=== PATIENT | female | born 1950 | race Caucasian/White ===

== ENCOUNTER → 2017-06-28 | Outpatient (CLI) | payer OTHER ==
[~2017-06-28] MED LIST: ASPI-612 PO; CANA300T PO; CITA20TA9 PO; EMPA10TA PO; GLIP10TA13 PO; METF-620 PO; MULT-245 PO; OMEG10005 PO; SIMV20TA3 PO; SITA100T PO; VALS160T3 PO
--- NOTE | 2017-06-28 12:11 | RAD ---
DATE: June 28, 2017 EXAM: DIGITAL DIAGNOSTIC BILATERAL HISTORY: History of right breast cancer treated with lumpectomy in 2012 COMPARISON: 2012 through 2015 This study was interpreted with the benefit of Computerized Aided Detection (CAD). FINDINGS: The breast parenchyma is scattered and mildly dense. Postoperative changes of the right breast are stable. There is a small intramammary lymph node within the upper posterior aspect of the left breast which is stable. There are no new dominant suspicious masses, suspicious microcalcifications or evidence of architectural distortion. IMPRESSION: No mammographic indicators for new or recurrent malignancy. BI-RADS Category 2 benign finding. RECOMMENDED FOLLOW-UP: 12M 12 MONTH FOLLOW-UP PQRS compliance statement: Patient information was entered into a reminder system with a target due date June 29, 2018 for the next mammogram. Mammography is a sensitive method for finding small breast cancers, but it does not detect them all and is not a substitute for careful clinical examination. A negative mammogram does not negate a clinically suspicious finding and should not result in delay in biopsying a clinically suspicious abnormality. "Our facility is accredited by the [employer] Mammography [employer]." The patient's breast density may affect the ability of mammography to detect breast cancer. There are 4 categories of breast density, A, B, C and D. Breast density A means that most of the breast tissue is replaced with adipose tissue and therefore is not dense. Breast density B means that the breast tissue is mildly dense and scattered. Breast density C means that the breast tissue is heterogeneously dense. Breast density D means that the breast tissue is very dense. Breast densities especially C and D may decrease the sensitivity of mammography to detect breast cancer. Therefore, the patient may benefit from 3-D breast mammography (3D breast tomography) as a part of their screening mammogram. Insurance may or may not pay for this additional imaging. The patient's breast density based on today's mammogram is category B.
== END | disposition home or self-care (01) ==
LOC: MAMMO 10:43
PROVIDERS: ATTEND Surgery
DX: R92.8 Other abnormal and inconclusive findings on diagnostic imaging of breast (principal); Z85.3 Personal history of malignant neoplasm of breast
CPT/HCPCS: G0204; 77066

== ENCOUNTER 2017-08-19 21:03 | Inpatient (IN) | payer OTHER ==
[2017-08-19 21:17] LABS: ADD MAN DIFF? NO
[2017-08-19 21:20] LABS: BASO % 1 % (0-3); EOS # 0.1 x10^3/uL (0.0-0.7); EOS % 2 % (0-3); HEMATOCRIT 40.7 % (36.0-47.0); HEMOGLOBIN 13.5 g/dL (12.0-15.5); LYMPH # 2.3 x10^3/uL (1.0-4.8); LYMPH % 33 % (24-48); MEAN CORPUSCULAR HEMOGLOBIN 31 pg (25-35); MEAN CORPUSCULAR HGB CONC 33 g/dL (31-37); MEAN CORPUSCULAR VOLUME 92 fL (79-100); MONO # 0.6 x10^3/uL (0.0-1.1); MONO % 9 % (0-9); NEUT # 3.9 x10^3uL (1.8-7.7); NEUT % 56 % (31-73); PLATELET COUNT 211 x10^3/uL (140-400); RED BLOOD COUNT 4.41 x10^6/uL (3.50-5.40); RED CELL DISTRIBUTION WIDTH 14.3 % (11.5-14.5); WHITE BLOOD COUNT 6.9 x10^3/uL (4.0-11.0)
[2017-08-19 21:31] LABS: ANION GAP 11 (6-14); BLOOD UREA NITROGEN 16 mg/dL (7-20); BUN/CREATININE RATIO 23 (6-20); CALCIUM 9.2 mg/dL (8.5-10.1); CARBON DIOXIDE 27 mmol/L (21-32); CHLORIDE 103 mmol/L (98-107); CREATININE 0.7 mg/dL (0.6-1.0); GFR 83.2; GLUCOSE 239 mg/dL (70-99); SODIUM 141 mmol/L (136-145)
[2017-08-19 21:35] LABS: ALBUMIN 3.7 g/dL (3.4-5.0); ALBUMIN/GLOBULIN RATIO 0.9 (1.0-1.7); ALK PHOS 60 U/L (46-116); ALT (SGPT) 17 U/L (14-59); AST (SGOT) 12 U/L (15-37); TOTAL BILIRUBIN 0.3 mg/dL (0.2-1.0); TOTAL PROTEIN 7.8 g/dL (6.4-8.2)
[2017-08-19 21:36] LABS: TROPONINI < 0.017 ng/mL (0.000-0.055)
[2017-08-19] MEDS: ASPIRIN CHEWABLE 81 MG TABLET. PO ×2 (22:04)
[2017-08-19] MEDS: NITROGLYCERIN SUBLINGUAL 0.4 MG BOTTLE OF 25. SL ×2 (22:05)
[2017-08-19 23:23] LABS: D-DIMER 0.41 ug/mlFEU (0.00-0.50)
[2017-08-20] MEDS: LIDO:MAALOX:DONNATAL 1:1:1 15 ML SINGLE DOSE SWSW ×2 (00:04)
[2017-08-20] MEDS ORDERED: PNEUMOCOCCAL VAX SCREEN BY RX. MC ×2 (02:30)
[2017-08-20] MEDS ORDERED: ONDANSETRON PF 4 MG/2 ML VIAL. IV ×4 (02:30→07:45)
[2017-08-20 06:20] LABS: TROPONINI < 0.017 ng/mL (0.000-0.055)
[2017-08-20] MEDS ORDERED: ACETAMINOPHEN 500 MG TABLET PO ×2 (07:45)
[2017-08-20] MEDS ORDERED: DEXTROSE 50% 25 GM / 50ML DISP.SYRIN. IV ×2 (07:45)
[2017-08-20] MEDS: INSULIN ASPART 300 UNITS/3 ML INSULN.PEN SQ ×4 (08:00→12:00)
[2017-08-20] MEDS: NON FORMULARY ITEM (Empagliflozin (Jardiance) 10 MG) PO ×2 (08:31)
[2017-08-20] MEDS: glipiZIDE 5 MG TABLET PO ×2 (08:32)
[2017-08-20] MEDS: ASPIRIN ENTERIC COATED 81 MG TABLET.DR. PO ×2 (08:32)
[2017-08-20] MEDS: OMEGA-3 FATTY ACIDS/FISH OIL 1,000 MG CAPSULE. PO ×2 (08:33)
[2017-08-20] MEDS: CITALOPRAM 20 MG TABLET. PO ×2 (08:33)
[2017-08-20] MEDS: MULTIVITAMIN with MINERAL TABLET. PO ×2 (08:33)
[2017-08-20] MEDS: LINAGLIPTIN 5 MG TABLET PO ×2 (08:36)
[2017-08-20] MEDS: LOSARTAN POTASSIUM 50 MG TABLET. PO ×2 (08:36)
[2017-08-20 08:51] LABS: CHOLESTEROL 137 mg/dL (0-200); HDLC 69 mg/dL (40-60); LDLC 56 mg/dL (0-100); NON-HDL CHOLESTEROL 68 mg/dL (0-129); TRIGLYCERIDES 59 mg/dL (0-150); VLDLC 12 mg/dL (0-40)
[2017-08-20 08:53] LABS: TROPONINI 0.024 ng/mL (0.000-0.055)
[2017-08-20] MEDS: PNEUMOC CONJ VACC 23-VALENT 0.5 ML VIAL. VAX IM ×2 (11:12)
[2017-08-20 11:37] LABS: POC GLUCOSE 86 mg/dL (70-99)
[2017-08-20] MEDS: REGADENOSON 0.4 MG/5 ML DISP.SYRIN. IV ×2 (12:03)
[2017-08-20] MEDS ORDERED: SIMVASTATIN 20 MG TABLET PO ×2 (21:00)
[2017-08-21 06:55] LABS: POC GLUCOSE 125 mg/dL (70-99)
== END 2017-08-20 15:41 | disposition home or self-care (01) | DRG 313 ==
LOC: 5 SOUTH 08-20 00:30 → ER 21:03 → 5 SOUTH 08-20 02:00
DX: R07.89 Other chest pain (principal); E11.9 Type 2 diabetes mellitus without complications; I10 Essential (primary) hypertension; E78.00 Pure hypercholesterolemia, unspecified; F32.9 Major depressive disorder, single episode, unspecified; E78.5 Hyperlipidemia, unspecified; R42 Dizziness and giddiness; H93.11 Tinnitus, right ear; M19.90 Unspecified osteoarthritis, unspecified site; Z82.49 Family history of ischemic heart disease and other diseases of the circulatory system; Z83.3 Family history of diabetes mellitus; Z85.3 Personal history of malignant neoplasm of breast; Z87.442 Personal history of urinary calculi; Z88.0 Allergy status to penicillin; Z92.3 Personal history of irradiation
CPT/HCPCS: 36415; 71045; 78452; 80053; 80061; 82962; 84484; 85025; 85379; 90732; 93005; 93017; 96374; 96375; 96376; 99285-25; A9500; J1815; J2785

== ENCOUNTER → 2018-08-03 | Outpatient (CLI) | payer OTHER, MEDICARE ==
[2017-08-20 15:00] VITALS: BP 112/67
[~2018-08-03] MED LIST changes: -METF-620 PO; +METF10007 PO
--- NOTE | 2018-08-03 12:34 | RAD ---
DATE: 08/03/2018 EXAM: MAMMO TORSTEN SCREENING BILATERAL HISTORY: Screening Mammogram COMPARISON: Mammogram 06/28/2017, 06/25/2016 This study was interpreted with the benefit of Computerized Aided Detection (CAD). The breast parenchyma shows scattered fibroglandular densities. Breast parenchyma level B. FINDINGS: Bilateral digital 2-D and 3-D tomosynthesis CC and MLO views. Stable architectural distortion and skin retraction in the upper outer right breast consistent with post therapeutic changes. No suspicious mass, calcification or new architectural distortion. No significant change from prior examination. IMPRESSION: 1. Stable post therapeutic changes in the right breast. 2. No mammographic evidence of malignancy. BI-RADS CATEGORY: 2 BENIGN FINDING(S) RECOMMENDED FOLLOW-UP: 12M 12 MONTH FOLLOW-UP PQRS compliance statement: Patient information was entered into a reminder system with a target due date for the next mammogram. Mammography is a sensitive method for finding small breast cancers, but it does not detect them all and is not a substitute for careful clinical examination. A negative mammogram does not negate a clinically suspicious finding and should not result in delay in biopsying a clinically suspicious abnormality. "Our facility is accredited by the [employer] Mammography [employer]."
== END | disposition home or self-care (01) ==
LOC: MAMMO 09:32
PROVIDERS: ATTEND Surgery
DX: Z12.31 Encounter for screening mammogram for malignant neoplasm of breast (principal); Z85.3 Personal history of malignant neoplasm of breast; Z98.890 Other specified postprocedural states
CPT/HCPCS: 77063; 77067

== ENCOUNTER → 2019-01-24 | Outpatient (CLI) | payer OTHER, MEDICARE ==
[2017-08-20 15:00] VITALS: BP 112/67
[~2019-01-24] MED LIST changes: +IOHEXOL 180 MG/ML 10 ML VIAL. ONE; +methylPREDNISolone ACETATE 40 MG/ML VIAL. ONE
--- NOTE | 2019-01-25 00:57 | PAIN ---
DATE OF SERVICE: 01/24/2019 INITIAL CONSULTATION FOR PAIN CLINIC CHIEF COMPLAINT: Low back and left lower extremity pain. HISTORY OF PRESENT ILLNESS: This is a 68-year-old female who presents with history of pain in low back, left lower extremity for about 2-3 months, increasing gradually over time, it has been problematic for many years, but much worse over the past few months with pain radiating the posterior gluteus, posterior lateral thigh, lateral anterior thigh, medial thigh and the knee on the left side especially. The patient reports it is worse with standing, walking, changing positions, is radiating in quality, intermittent in intensity, shooting and stabbing. Also, dull and aching in the back. The patient reports no specific injury or action that she is aware of. The pain is getting gradually worse with time and especially with standing on her feet and working. The patient reports it awakens her from sleep at least 2-3 times a night, does not affect her bowel or bladder control or ability to walk. She is not using any assistive devices. She has not had any formal physical therapies recently but is doing some stretching and strengthening exercises on her own. No other treatments at this time. The patient was taking ibuprofen as well as Naprosyn. Naprosyn seems to help to a moderate extent. Ibuprofen has not been extremely helpful in decreasing the pain. The patient has not had any recent diagnostic studies such as MRI scans or plain films for the lumbar spine as well. PAST MEDICAL HISTORY: Significant for hypertension, type 2 diabetes, breast cancer in 2013, osteopenia. PAST SURGICAL HISTORY: Previous surgeries include breast lumpectomy in 2013 and tubal ligation in the past. CURRENT MEDICATIONS: Include Jardiance, Diovan, Januvia, aspirin, Celexa, glipizide, simvastatin, and metformin. ALLERGIES: THE PATIENT IS ALLERGIC TO PENICILLIN. FAMILY HISTORY: Significant for cancer and Alzheimer's disease. SOCIAL HISTORY: The patient does not drink alcohol, does not smoke, does not use any illegal, illicit or recreational drugs. 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 REVIEW OF SYSTEMS: The patient's review of systems is positive for those items mentioned in history of present illness. All systems reviewed and otherwise negative. It is complete, full and well documented on the patient's chart. PHYSICAL EXAMINATION: VITAL SIGNS: The patient's blood pressure is 132/77, pulse 84, respirations 18, temperature 98.0 degrees Fahrenheit, height is 5 feet 8 inches, weighs 207 pounds. GENERAL: The patient is awake, alert, oriented, appropriate, very pleasant demeanor. HEENT: Shows normocephalic, atraumatic. Extraocular movements intact and symmetrical. Oral cavity, mucous membranes are moist and pink. Dentition is intact. NECK: Shows anterior throat supple without palpable lymphadenopathy noted. Swallow reflex symmetrical. CHEST: Shows normal with inspection. Breath sounds clear to auscultation bilaterally. HEART: Shows S1, S2 clear, no murmurs auscultated. ABDOMEN: Soft, nontender, nondistended. No palpable organomegaly is noted. No rebound or guarding demonstrated. BACK: Shows spine grossly in the midline. Normal appearing thoracic kyphosis and lumbar lordotic curvature. Lumbar paraspinous muscle shows symmetrical on inspection. With palpation shows some moderate tenderness in the middle and lower distribution of paraspinous muscles, but only diffusely without radiation, without trigger points. No tenderness over the spinous processes, sacrum or sacroiliac regions. The patient has full rotational motion of lumbar spine, both laterally as well as extension and flexion without significant difficulty or pain reported. EXTREMITIES: Lower extremities show deep tendon reflexes 2+ in the patellar, 1+ tendo-calcaneus tendons. Motor exam is strong with 5/5 dorsiflexion, extension, quadriceps and hamstring flexion and symmetrical. Peripheral pulses are 1+ posterior tibia. No peripheral edema is noted. Straight leg raise noted to be negative for reproduction of any radicular symptoms bilaterally. Gaenslen's and Michi's maneuvers are negative bilaterally as well. The patient is able to stand, stand on her toes, walks with a normal appearing gait, does not appear to favor the right or left lower extremity, not using any assistive devices to ambulate. SKIN: Shows warm and dry, good turgor. No edema. No sores, rashes or bruising. IMPRESSION: 1. This is a 68-year-old female with long history to 3 months increasing low back and left lower extremity pain in a radicular fashion. 2. Hypertension. 3. Type 2 diabetes. PLAN: Options were discussed with the patient including conservative medical management, physical therapy, interventional techniques. She would like to pursue interventional techniques as she has been through therapy before in the past and is doing some exercises on her own. We discussed a lumbar epidural steroid injection using description as well as anatomical models to describe the procedure. Risks were then discussed including, but not limited to bleeding, infection, possibility of epidural hematoma, subsequent neurological compromise, dural puncture, headaches, spinal cord and/or nerve damage, side effects of steroid medication and poor results regarding pain control. The patient understands and wished to proceed. The patient will return to the clinic in approximately 2 weeks for followup, was counseled as to return appointment, activity level and side effects to be aware of. DIAGNOSES: Lumbar radiculopathy with lumbar degenerative disk disease. PROCEDURE: Lumbar epidural steroid injection, translaminar approach at the L4-L5 level using C-arm fluoroscopic guidance under sterile prep and drape using local anesthetic. MEDICATION INJECTED: A total of 120 mg of Depo-Medrol, plus 10 mL of preservative-free normal saline and 2 mL of contrast. CONDITION AT DISCHARGE: Stable. The patient tolerated the procedure well, had no complications. SCOOTER ZULUAGA MD DR: SALAZAR/ephraim JOB#: [id number] / [id number] KIESHA Busch MD
== END ==
LOC: PNCL 13:43
PROVIDERS: ATTEND Anesthesiology
DX: M51.16 Intervertebral disc disorders with radiculopathy, lumbar region (principal); I10 Essential (primary) hypertension; E11.9 Type 2 diabetes mellitus without complications; Z85.3 Personal history of malignant neoplasm of breast; Z98.51 Tubal ligation status; Z88.0 Allergy status to penicillin; Z79.84 Long term (current) use of oral hypoglycemic drugs
CPT/HCPCS: 62323; J1030; Q9965

== ENCOUNTER → 2019-07-06 | Outpatient (CLI) | payer OTHER, MEDICARE ==
[2017-08-20 15:00] VITALS: BP 112/67
[~2019-07-06] MED LIST changes: +SIMV20TA18 PO; -SIMV20TA3 PO; +methylPREDNISolone ACETATE 80 MG/ML VIAL. ONE
--- NOTE | 2019-07-06 14:09 | PAIN ---
DATE OF SERVICE: 07/06/2019 PROGRESS NOTE FOR PAIN CLINIC DIAGNOSES: Lumbar radiculopathy with lumbar degenerative disk disease. HISTORY OF PRESENT ILLNESS: The patient is a 68-year-old female, who returns for followup status post lumbar epidural steroid injection x1 on 01/24/2019. The patient did very well with this with about 100% improvement for 3 months. The pain began to return over the past month or so and it has been more noticeable in the low back and left leg again in the posterior gluteus, posterolateral thigh, lateral anterior thigh, and anterior medial thigh; also has some pain in the knees but mostly in the back and left leg. The patient reports that 9 on a scale of 10 at its worst over the past week, 6 on average, 2 at its least, and is 6 today. The patient reports initially she was increasing her activity, walking, doing work activities with greater ease and comfort, household activities, lifting items, bending, sleeping well at night. The patient reports she still sleeps well at night, but it does awaken her occasionally over the past month or so for 5-7 hours. The patient reports no new motor or sensory deficits, no new bowel or bladder incontinence, or other complaints. The patient describes the pain as shooting and stabbing, radiating in the left leg and aching in the low back. PHYSICAL EXAMINATION: VITAL SIGNS: The patient's blood pressure is 124/76, pulse 67, respirations 16, temperature 98.3 degree Fahrenheit, height is 5 feet 9 inches, and weight is 204 pounds. GENERAL: The patient is awake, alert, oriented, appropriate, very pleasant demeanor. HEENT: Head shows normocephalic, atraumatic. Extraocular movements are intact and symmetrical. Oral cavity: Mucous membranes are moist and pink. Dentition is intact. NECK: Shows anterior throat supple without palpable lymphadenopathy noted. Swallow reflex is symmetrical. CHEST: Shows normal on inspection. Breath sounds are clear bilaterally. HEART: Shows S1, S2 clear. No murmurs auscultated. ABDOMEN: Soft, nontender, nondistended. No palpable organomegaly is noted. No rebound or guarding demonstrated. BACK: Shows spine grossly in the midline; normal appearing thoracic kyphosis and lumbar lordotic curvature. Lumbar paraspinous muscle shows symmetrical on inspection; with palpation some mild tenderness in the low lumbar distribution but only mildly. The patient has full rotational motion of the lumbar spine, both laterally as well as extension and flexion without difficulty. EXTREMITIES: Lower extremities show deep tendon reflexes 2+ in the patellar and 1+ calcaneus tendons. Motor examination is 5/5 with dorsiflexion, extension, quadriceps, and hamstring flexion, equal. Peripheral pulses are 1+ posterior tibia. No peripheral edema is noted bilaterally. ASSESSMENT AND PLAN: Options were discussed with the patient. The patient's old chart was reviewed as her current medication regimen updated; current review of systems updated today as well. We will proceed with a second in the series of lumbar epidural steroid injection today with fluoroscopic guidance. Risks were again discussed including but not limited to bleeding, infection, possibility of epidural hematoma, subsequent neurological compromise, dural puncture, headaches, spinal cord and/or nerve damage, side effects of steroid medication, and poor results regarding pain control. The patient understands and wishes to proceed. The patient will return to clinic in approximately 2 weeks for followup. She was counseled as to return appointment, activity level, and side effects to be aware of. PROCEDURE: Lumbar epidural steroid injection, translaminar approach, L4-L5 level, using C-arm fluoroscopic guidance under sterile prep and drape using local anesthetic. MEDICATION INJECTED: A total of 120 mg of Depo-Medrol plus 10 mL of preservative-free normal saline and 2 mL of contrast. CONDITION AT DISCHARGE: Stable. The patient tolerated procedure well and had no complications. SCOOTER ZULUAGA MD DR: SALAZAR/ephraim JOB#: [id number] / [id number]
== END ==
LOC: PNCL 08:00
PROVIDERS: ATTEND Anesthesiology
DX: M51.16 Intervertebral disc disorders with radiculopathy, lumbar region (principal)
CPT/HCPCS: 62323; J1030; J1040; Q9965

== ENCOUNTER → 2019-08-23 | Outpatient (CLI) | payer OTHER, MEDICARE ==
[2017-08-20 15:00] VITALS: BP 112/67
[~2019-08-23] MED LIST changes: -IOHEXOL 180 MG/ML 10 ML VIAL. ONE; -methylPREDNISolone ACETATE 40 MG/ML VIAL. ONE; -methylPREDNISolone ACETATE 80 MG/ML VIAL. ONE
--- NOTE | 2019-08-23 17:52 | RAD ---
BILATERAL SCREENING MAMMOGRAM, 3-D History: Routine screening. Comparison: 08/03/2018, 06/28/2017, 07/02/2016, 06/13/2015 mammographic exams. Technique: MLO and CC digital tomosynthesis (3D) images obtained. Radiologist reviewed these images on dedicated workstation. Findings: Breast Tissue Density B : There are scattered areas of fibroglandular density. Distortion involving the right upper outer breast corresponding to lumpectomy is again noted. There are significant Coarse calcifications at the site however compared to the prior exams. No mass or new distortion in the interval. Benign-appearing calcifications are also present. IMPRESSION: Spot magnification imaging of the right upper outer breast calcifications including lateral medial spot medication imaging is recommended. BI-RADS Category 0: Incomplete: Need additional imaging evaluation. The images were reviewed with computer-aided detection. Patient information is entered into reminder system with a target due date for the next screening mammogram. Mammography is the most sensitive method for finding small breast cancers, but it does not detect them all and is not a substitute for careful clinical examination. A negative mammogram does not negate a clinically suspicious finding and should not result in delay in biopsying a clinically suspicious abnormality. "Our facility is accredited by the [employer] Mammography Program." Electronically signed by: Jorge Darling MD (08/23/2019 5:49 PM) [facility]
== END | disposition home or self-care (01) ==
LOC: MAMMO 09:17
PROVIDERS: ATTEND Surgery
DX: Z12.31 Encounter for screening mammogram for malignant neoplasm of breast (principal)
CPT/HCPCS: 77063; 77067

== ENCOUNTER → 2019-09-11 | Outpatient (CLI) | payer OTHER, MEDICARE ==
[2017-08-20 15:00] VITALS: BP 112/67
--- NOTE | 2019-09-11 15:11 | RAD ---
DIGITAL DIAGNOSTIC RT 09/11/2019 9:33 AM INDICATION: Callback, right breast calcifications. COMPARISON: Mammogram 08/23/2019, 08/03/2018, 06/19/2013 TECHNIQUE: Spot magnification CC and ML views of the right breast as well as a full field MLO view was obtained. FINDINGS: There is a cluster of coarse calcifications in the right breast along the right lumpectomy scar in the upper outer right breast at posterior depth, approximately 4.5 cm from the nipple. These findings are new from prior examination and are atypical for milk of calcium. Coarse appearance may suggest benign etiology, although initial malignancy presented with microcalcifications. Therefore, stereotactic biopsy is recommended for further evaluation as findings remain suspicious. IMPRESSION: Suspicious microcalcifications in the upper outer right breast for which stereotactic biopsy is recommended. Findings were discussed with the office of Dr. Hanson at 10:15 AM on 09/11/[address] Angulo. BI-RADS category: 4; Suspicious Recommendations: Stereotactic biopsy is recommended for further evaluation. Electronically signed by: Adele Angulo MD (09/11/2019 3:08 PM) [id number]
== END | disposition home or self-care (01) ==
LOC: MAMMO 09:37
PROVIDERS: ATTEND Surgery
DX: R92.1 Mammographic calcification found on diagnostic imaging of breast (principal); N64.89 Other specified disorders of breast; Z86.000 Personal history of in-situ neoplasm of breast
CPT/HCPCS: 77065

== ENCOUNTER → 2020-02-01 | Outpatient (CLI) | payer OTHER, MEDICARE ==
[2017-08-20 15:00] VITALS: BP 112/67
[~2020-02-01] MED LIST changes: -ASPI-612 PO; +ASPI-886 PO; +IOHEXOL 180 MG/ML 10 ML VIAL. ONE; +methylPREDNISolone ACETATE 40 MG/ML VIAL. ONE; +methylPREDNISolone ACETATE 80 MG/ML VIAL. ONE
--- NOTE | 2020-02-01 08:22 | PAIN ---
DATE OF SERVICE: 02/01/2020 PROGRESS NOTE FOR PAIN CLINIC DIAGNOSIS: Lumbar radiculopathy with lumbar degenerative disk disease. HISTORY OF PRESENT ILLNESS: The patient is a 69-year-old female who returns for followup status post lumbar epidural steroid injection, last seen on 07/06/2019, patient did very well with about 75% improvement for about 2 months. The pain is returning now over the past several months, is very gradually slowly in the low back, left lower extremity, posterior gluteus, lateral thigh, anterior thigh, medial thigh to the knee into the medial lower leg on the left side as well. The patient reports no new motor or sensory deficits, no bowel or bladder incontinence. Describes as burning and stabbing in the low back and left leg, sharp and shooting at times, rates it 8 on a scale of 10 at its worst, 6 on average, 3 at its least and is a 3 today. The patient reports it is worse with walking, standing, changing positions. 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 The patient reports it awakens her from sleep about every 5-6 hours. No new motor or sensory deficits, no bowel or bladder incontinence or other complaints. PHYSICAL EXAMINATION: VITAL SIGNS: The patient's blood pressure 139/84, pulse 74, respirations 16, temperature 98.0 degrees Fahrenheit, weight is 200 pounds. GENERAL: The patient is awake, alert, oriented, appropriate, very pleasant demeanor. HEENT: Shows normocephalic, atraumatic. Extraocular movements are intact and symmetrical. Oral cavity: Mucous membranes moist and pink. Dentition is intact. NECK: Shows anterior throat supple without palpable lymphadenopathy noted. Swallow reflex symmetrical. CHEST: Shows normal on inspection. Breath sounds are clear bilaterally. HEART: Shows S1, S2 clear. No murmurs auscultated. ABDOMEN: Soft, nontender, nondistended. No palpable organomegaly is noted. No rebound or guarding demonstrated. BACK: Shows spine grossly in the midline. Normal appearing thoracic kyphosis and minor flattening of lumbar lordotic curvature. Lumbar paraspinous muscle shows symmetrical on inspection, on palpation shows some moderate tenderness diffusely, bilaterally going diffusely without significant radiation. The patient has good rotational motion of lumbar spine, both laterally as well as extension and flexion without significant difficulty. EXTREMITIES: The patient's lower extremities show deep tendon reflexes 2+ in the patellar, 1+ tendo-calcaneus tendons. Motor exam is strong with 5/5 dorsiflexion, extension, quadriceps and hamstring flexion symmetrical. Peripheral pulses are 1+ posterior tibia. No peripheral edema bilaterally. Options were discussed with the patient. The patient's old chart was reviewed as her current medication regimen updated. Current review of systems updated today as well. We will proceed with a third in the series of lumbar epidural steroid injection today with fluoroscopic guidance. Risks were again discussed including, but not limited to bleeding, infection, possibility of epidural hematoma, subsequent neurological compromise, dural puncture, headaches, spinal cord and/or nerve damage, side effects of steroid medication and poor results regarding pain control. The patient understands and wished to proceed. The patient will return to clinic in approximately 2 weeks for followup. She was counseled as to return appointment, activity level and side effects to be aware of. DIAGNOSIS: Lumbar radiculopathy with lumbar degenerative disk disease. PROCEDURE: Lumbar epidural steroid injection, translaminar approach at L4-L5 level using C-arm fluoroscopic guidance under sterile prep and drape using local anesthetic. MEDICATION INJECTED: A total of 120 mg Depo-Medrol plus 10 mL of normal saline and 2 mL of contrast. CONDITION AT DISCHARGE: Stable. The patient tolerated procedure well, had no complications. SCOOTER ZULUAGA MD DR: SALAZAR/ephraim JOB#: [id number] / [id number]
== END | disposition home or self-care (01) ==
LOC: PNCL 07:28
PROVIDERS: ATTEND Anesthesiology
DX: M51.16 Intervertebral disc disorders with radiculopathy, lumbar region (principal); Z88.0 Allergy status to penicillin; Z79.82 Long term (current) use of aspirin; Z79.899 Other long term (current) drug therapy
CPT/HCPCS: 62323; J1030; J1040; Q9965

== ENCOUNTER → 2020-03-20 | Outpatient (CLI) | payer OTHER ==
[2017-08-20 15:00] VITALS: BP 112/67
[~2020-03-20] MED LIST changes: -IOHEXOL 180 MG/ML 10 ML VIAL. ONE; -methylPREDNISolone ACETATE 40 MG/ML VIAL. ONE; -methylPREDNISolone ACETATE 80 MG/ML VIAL. ONE
--- NOTE | 2020-03-20 17:09 | RAD ---
DATE: 03/20/2020 10:40 AM EXAM: MAMMO TORSTEN DIAG RT HISTORY: Six-month follow-up probably benign developing calcifications in the right breast. She is status post right lumpectomy and radiation therapy for breast cancer in 2012 COMPARISON: Right diagnostic mammogram of 09/11/2019, bilateral screening mammograms of 08/23/2019, 08/03/2018 and 06/28/2017. TECHNIQUE: CC and MLO views of the right breast were performed. Breast tomosynthesis was performed in CC and MLO projections. This study was interpreted with the benefit of Computerized Aided Detection (CAD). FINDINGS: Breast Density: FATTY The Breast Parenchyma is primarily fatty replaced. Breast parenchyma level density A. Benign postlumpectomy changes in the superior lateral right breast are redemonstrated with further coarsening of calcifications in the lumpectomy bed. No suspicious masses, microcalcifications or architectural distortion is present to suggest malignancy. IMPRESSION: No mammographic evidence of malignancy. BI-RADS CATEGORY: 2 BENIGN FINDING(S) RECOMMENDED FOLLOW-UP: 12M 12 MONTH FOLLOW-UP Annual screening mammography is recommended, unless clinically indicated sooner based on symptoms or change in physical exam. PQRS compliance statement: Patient information was entered into a reminder system with a target due date 08/24/2020 for the next mammogram. Mammography is a sensitive method for finding small breast cancers, but it does not detect them all and is not a substitute for careful clinical examination. A negative mammogram does not negate a clinically suspicious finding and should not result in delay in biopsying a clinically suspicious abnormality. "Our facility is accredited by the [employer] Mammography Program."
== END | disposition home or self-care (01) ==
LOC: MAMMO 10:29
PROVIDERS: ATTEND Surgery
DX: R92.0 Mammographic microcalcification found on diagnostic imaging of breast (principal); Z85.3 Personal history of malignant neoplasm of breast
CPT/HCPCS: 77065; G0279; 77061

== ENCOUNTER → 2020-11-05 | Outpatient (CLI) | payer MEDICARE ==
[2017-08-20 15:00] VITALS: BP 112/67
--- NOTE | 2020-11-05 12:19 | PDOC ---
Progress Note - Pain Clinic Date of Service: DOS: DATE: 11/05/20 TIME: 12:15 Diagnosis: Dx: Lumbar radiculopathy with lumbar degenerative disc disease History or Present Illness: HPI: 69-year-old female returns for follow-up status post lumbar epidural steroid injections most recently February 01, 2020 patient did very well at about 75% improvement after the last injection lasting for several months about 5 months total patient reports her pain is returning now over the past 4 to 5 months in the low back and left lower extremity posterior gluteus posterior lateral thigh lateral anterior thigh anteromedial thigh medial lower leg as well patient reports that sharp and shooting in the leg can be radiating the leg as well constant and aching with walking and standing and dull and tight across the low back patient reports some burning quality in the left leg as well. Patient reports better with sitting or laying down does not awaken her from sleep at night worse with walking standing changing positions patient continues to do stretching and strength exercises and she is had physical therapy over the past year and is doing the exercises from that as well patient is been taking gluk-reb-ldhutia ibuprofen as well as Tylenol with moderate decrease in pain by about 30%. Patient also has Percocet which she takes when the pain gets significantly increased but only uses this sparingly. Patient rates her pain as an 8 on scale 10 is worse with past week 5 on average 3 displeasing is a 5 today. Patient reports no new motor or sensory deficits no new bowel or bladder cons or other complaints. Physical Exam: VS: Blood pressure is 152/88 pulse 76 respirations 18 temperature is 98.2 F height is 5 feet 9 inches weight is 198 pounds PE: PHYSICAL EXAMINATION: GENERAL: The patient is awake, alert, oriented, appropriate, very pleasant demeanor HEENT: Shows normocephalic, atraumatic. Extraocular movements are intact and symmetrical. Oral cavity: Mucous membranes moist and pink. Dentition is inta ct. NECK: Shows anterior throat supple without palpable lymphadenopathy noted. Swallow reflex symmetrical. CHEST: Shows normal on inspection. Breath sounds are clear bilaterally, no rales rhonchi or wheezes auscultated. HEART: Shows S1, S2 clear. No murmurs auscultated. ABDOMEN: Soft, nontender, nondistended, obese. No palpable organomegaly is noted. No rebound or guarding demonstrated. BACK: Shows spine grossly in the midline. Normal-appearing cervical lordotic curvature. There is slightly increased thoracic kyphosis, some minor flattening of the lumbar lordotic curvature. Lumbar paraspinous muscles show symmetrical on inspection, on palpation shows some moderate tenderness diffusely throughout the upper, middle and lower distribution of the paraspinous muscles without specific trigger points, without radiation of pain. The patient has good rotational motion of the lumbar spine, both laterally as well as extension and flexion without significant difficulty. No tenderness over the spinous processes, sacrum or sacroiliac regions. EXTREMITIES: Lower extremities show deep tendon reflexes 2+ in the patellar and tendo calcaneus tendons. Motor exam is 5 on a scale of 5 with right dorsiflexion, extension, quadriceps and hamstring flexion and 4/5 on the left. Peripheral pulses are 1+ posterior tibial. No peripheral edema is noted bilaterally. Lower extremities are warm and dry to touch, equal in color and appearance. Straight leg raise noted to be negative on the right, left side is positive at approximately 35 degrees, decreased with knee flexion. Gaenslen's and Michi's maneuvers are good bilaterally. SKIN: Shows warm and dry, good turgor. No edema. No sores, rashes or bruising throughout. Procedure: Procedure: Options were discussed with the patient. Patient chart reviews her current medication regimen updated current review of systems updated today as well. We will preauthorize patient for lumbar epidural steroid injection she did very well with these in the past with about 75% improvement for several months following the last injection. She has recurrent radicular pain in the L4-5 derm atomal distribution on the left side with some weakness on the left as well as positive straight leg raise. Once authorized, we will plan on lumbar epidural steroid injection translaminar approach at the L4-5 level with fluoroscopic guidance. In the meantime patient continue with stretching and strength exercises and oral analgesics as currently. Medication Injected: Med Injected: None Condition at Discharge: Condition at Discharge: Condition at discharge is stable. SCOOTER ZULUAGA MD November 05, 2020 12:19
== END | disposition home or self-care (01) ==
LOC: PNCL 11:34
PROVIDERS: ATTEND Anesthesiology
DX: M51.16 Intervertebral disc disorders with radiculopathy, lumbar region (principal); I10 Essential (primary) hypertension; E78.00 Pure hypercholesterolemia, unspecified; E11.9 Type 2 diabetes mellitus without complications; F32.9 Major depressive disorder, single episode, unspecified; Z85.3 Personal history of malignant neoplasm of breast; Z79.82 Long term (current) use of aspirin; Z79.84 Long term (current) use of oral hypoglycemic drugs; Z98.890 Other specified postprocedural states; Z88.0 Allergy status to penicillin
CPT/HCPCS: 99212; G0463

== ENCOUNTER → 2021-03-04 | Outpatient (CLI) | payer MEDICARE ==
[2017-08-20 15:00] VITALS: BP 112/67
[~2021-03-04] MED LIST changes: +IOHEXOL 180 MG/ML 10 ML VIAL. ONE; +OXYC-325 PO; +methylPREDNISolone ACETATE 80 MG/ML VIAL. ONE
--- NOTE | 2021-03-04 10:26 | PDOC4 ---
Procedure Note: ICD 10 Code: ICD 10 Code: M54.16 M51.36 Procedure Note: Patient was consented for lumbar epidural steroid injection with fluoroscopic guidance. Risks were discussed including but not limited to: Bleeding, infection, possibility of epidural hematoma and subsequent neurological compromise, dural puncture, headaches, spinal cord and/or nerve damage, side effects of steroid medication, and poor results regarding pain control. Patient understands and wished to proceed. Procedure is lumbar epidural steroid injection under local anesthetic using sterile prep and drape at the L4-5 level using C-arm fluoroscopic guidance in both AP and lateral views medications injected is 120 mg Depo-Medrol +10mL preservative-free normal saline and 2 mL contrast- condition at discharge is stable patient tolerated procedure well had no complications. SCOOTER ZULUAGA MD Mar 04, 2021 10:26
--- NOTE | 2021-03-04 10:26 | PDOC ---
Progress Note - Pain Clinic Date of Service: DOS: DATE: 03/04/21 TIME: 10:23 Diagnosis: Dx: Lumbar radiculopathy with lumbar degenerative disc disease History or Present Illness: HPI: 70-year-old female returns for follow-up status post lumbar epidural steroid injections last seen November 2020 with significant elevated co-pay patient was waiting to afford this till later on he returns today with pain low back and left lower extremity posterior gluteus posterior thigh posterior calf lateral thigh anterior thigh medial lower leg as well as the medial ankle patient reports is worse with walking standing changing positions better with sitting or laying down generally awakens her from sleep about once every 5 hours patient reports an 8 on scale 10 is worse over the past week 5 on average 3 at its least is a 5 today patient reports is stabbing and radiating constant in the back radiating to the left lower extremity again worse with walking standing last injection she had was January 2020 patient did very well with about 75% improvement of the pain returning now patient also taking oxycodone with good results as well but very sparingly has had 28 tablets which lasted her almost a year. Patient reports no loss of motor function no bowel or bladder incontinence. Physical Exam: VS: Blood pressure is 120/76 pulse 74 respirations 20 temperature 97.4 F weight is 196 pounds PE: PHYSICAL EXAMINATION: GENERAL: The patient is awake, alert, oriented, appropriate, very pleasant in demeanor. HEENT: Shows normocephalic, atraumatic. Extraocular movements are intact and symmetrical. Oral cavity: Mucous membranes moist and pink. NECK: Shows anterior throat supple without palpable lymphadenopathy noted. Swallow reflex symmetrical. CHEST: Shows normal on inspection. Breath sounds are clear bilaterally, no rales rhonchi wheezes auscultated. HEART: Shows S1, S2 clear. No murmurs auscultated. ABDOMEN: Soft, nontender, nondistended, obese. No palpable organomegaly is noted. BACK: Shows spine grossly in the midline. Normal-appearing cervical lordotic curvature. There is slightly increased thoracic kyphosis, some minor flattening of the lumbar lordotic curvature. Lumbar paraspinous muscles show symmetrical on inspection, on palpation shows some moderate tenderness diffusely throughout the upper, middle and lower distribution of the paraspinous muscles, but without specific trigger points, without radiation of pain. The patient has good rotational motion of the lumbar spine, both laterally as well as extension and flexion without significant difficulty. No tenderness over the spinous processes, sacrum or sacroiliac regions. EXTREMITIES: Lower extremities show deep tendon reflexes 2+ in the patellar and tendo calcaneus tendons. Motor exam is 5 on a scale of 5 with right dorsiflexion, extension, quadriceps and hamstring flexion and 4/5 on the left. Peripheral pulses are 1 posterior tibial. No peripheral edema is noted bilaterally. Lower extremities are warm and dry to touch, equal in color and appearance. SKIN: Shows warm and dry, good turgor. No edema. No sores, rashes or bruising throughout. Procedure: Procedure: Options discussed with patient. Patient chart was reviewed as her current medication regimen updated current review of systems updated today as well. We will proceed with a lumbar epidural steroid injection with fluoroscopic neelam nce. Risks were discussed including but not limited to: Bleeding, infection, possibility of epidural hematoma and subsequent neurological compromise, dural puncture, headaches, spinal cord and/or nerve damage, side effects of steroid medication, and poor results regarding pain control. Patient understands and wished to proceed. Patient will return to the clinic in approximately 4 weeks for follow-up, was counseled as to return appointment, activity level, and side effects be aware of. Medication Injected: Med Injected: Procedure is lumbar epidural steroid injection under local anesthetic using jason rile prep and drape at the L4-5 level using C-arm fluoroscopic guidance in both AP and lateral views medications injected is 120 mg Depo-Medrol +10mL preservative-free normal saline and 2 mL contrast- condition at discharge is stable patient tolerated procedure well had no complications. Condition at Discharge: Condition at Discharge: Condition at discharge is stable, patient already procedure well and had no complications. SCOOTER ZULUAGA MD Mar 04, 2021 10:26
== END | disposition home or self-care (01) ==
LOC: PNCL 09:24
PROVIDERS: ATTEND Anesthesiology
DX: M51.16 Intervertebral disc disorders with radiculopathy, lumbar region (principal); I10 Essential (primary) hypertension; E78.00 Pure hypercholesterolemia, unspecified; F32.9 Major depressive disorder, single episode, unspecified; E11.9 Type 2 diabetes mellitus without complications; Z85.3 Personal history of malignant neoplasm of breast; Z79.82 Long term (current) use of aspirin; Z79.84 Long term (current) use of oral hypoglycemic drugs; Z79.899 Other long term (current) drug therapy; Z98.890 Other specified postprocedural states; Z88.0 Allergy status to penicillin
CPT/HCPCS: 62323; J1040; Q9965

== ENCOUNTER → 2021-10-15 | Outpatient (CLI) | payer BC, MEDICARE ==
[2017-08-20 15:00] VITALS: BP 112/67
[~2021-10-15] MED LIST changes: -EMPA10TA PO; +EMPA10TA3 PO; -IOHEXOL 180 MG/ML 10 ML VIAL. ONE; -methylPREDNISolone ACETATE 80 MG/ML VIAL. ONE
--- NOTE | 2021-10-15 14:25 | RAD ---
INDICATION: 70 years of age asymptomatic female patient presents for screening mammography. Personal history of right breast cancer diagnosed in 2013 2 with lumpectomy and radiation therapy. TECHNIQUE: Full field craniocaudal and mediolateral oblique images of both breasts were obtained usi ng digital technique with tomosynthesis and also analyzed with computer-aided detection software. COMPARISON: Prior mammographic imaging dating back to 06/28/2017. BREAST COMPOSITION: FINDINGS: Stable post conservation therapy changes of the right breast. No suspicious masses, microcalcificatio ns or architectural distortion is present to suggest malignancy in either breast. The visualized axillae are unremarkable. IMPRESSION: No mammographic evidence of malignancy. RECOMMENDATION: Annual screening mammography is recommended, unless clinically indicated sooner based on symptoms or change in physical exam. BIRADS 2: BENIGN This study was interpreted with the benefit of Computerized Aided Detection (CAD). Patient information is entered into the reminder system with a target due date for the next screening mammogram. Mammography is the most sensitive method for finding small breast cancers, but it does not detect the m all and is not a substitute for careful clinical examination. A negative mammogram does not negate a clinically suspicious finding and should not result in delay in biopsying a clinically suspicious a bnormality. "Our facility is accredited by the [employer] Mammography Program." Electronically signed by: Ross Garrett DO (10/15/2021 2:22 PM) [id number]
== END ==
LOC: MAMMO 11:00
PROVIDERS: ATTEND Family Medicine
DX: Z12.31 Encounter for screening mammogram for malignant neoplasm of breast (principal)
CPT/HCPCS: 77063; 77067